=== PATIENT | female | born 1985 | race Caucasian/White ===

== ENCOUNTER 2016-11-29 14:51 | Emergency (ER) | payer OTHER, MEDICAID ==
[2016-11-29] MEDS ORDERED: Ketorolac INJ* 60 MG/2 ML VIAL IM ONE (16:55)
--- NOTE | 2016-11-29 17:00 | UC ---
Back Pain HPI - HPI Summary HPI Summary: 31 female presents to with complaints of left sided arm pain, upper back pain and pins and needles in right finger tips with intermittent swelling of fingers. Patient states these symptoms have been ongoing for the past month after an injury that occurred when she fell onto the ground. She has not yet been seen by a medical professional for this. Patient states she has been trying to get into primary care. Denies any redness, bruising or obvious deformities. Patient states the pains are sharp and aching. She can not take them anymore. Has been taking ibuprofen and aleve with relief. Last dose being around 8am. Patient denies chest pain, SOB and no PMHx. Has known arthritis in her back that she thinks is worsening up to upper back. - History of Current Complaint Chief Complaint: UCGeneralIllness Stated Complaint: BACK AND ARM PAIN Time Seen by Provider: 11/29/16 16:44 Hx Obtained From: Patient Hx Last Menstrual Period: 11/29/16 Onset/Duration: Sudden Onset, Lasting Weeks, Still Present, Worse Since Timing: Constant Severity Initially: Mild Severity Currently: Moderate Pain Intensity: 7 Pain Scale Used: 0-10 Numeric Back Pain: Is Discrete @ - left arm and upper back Character: Sharp, Aching Aggravating: Movement, Lifting Alleviating: Rest, Nothing Associated Signs And Symptoms: Positive: Swelling, Weakness, Numbness, Tingling - Allergies/Home Medications Allergies/Adverse Reactions: Allergies Allergy/AdvReac Type Severity Reaction Status Date / Time No Known Allergies Allergy Verified 11/29/16 16:10 PMH/Surg Hx/FS Hx/Imm Hx - Additional Past Medical History Additional PMH: Denies PMHx. No DM HTN or asthma - Surgical History Surgical History: Yes Surgery Procedure, Year, and Place: , 2010 - Family History Known Family History: Positive: Respiratory Disease - asthma - Social History Alcohol Use: Occasionally Substance Use Type: None Smoking Status (MU): Heavy Every Day Tobacco Smoker Type: Cigarettes Amount Used/How Often: 1 ppd Length of Time of Smoking/Using Tobacco: started age 13 Review of Systems Constitutional: Negative Respiratory: Negative Cardiovascular: Negative Motor: Weakness - left arm Musculoskeletal: Arthralgia - left arm, upper back, Myalgia Neurological: Paresthesia - left arm All Other Systems Reviewed And Are Negative: Yes Physical Exam Triage Information Reviewed: Yes Appearance: Well-Appearing, No Pain Distress, Well-Nourished Vital Signs: Initial Vital Signs Temp 98.9 F 11/29/16 16:11 Pulse 72 11/29/16 16:11 Resp 16 11/29/16 16:11 BP 116/70 11/29/16 16:11 Pulse Ox 99 11/29/16 16:11 Vital Signs Reviewed: Yes Eyes: Positive: Conjunctiva Clear ENT: Positive: Normal ENT inspection, Hearing grossly normal Neck: Positive: Supple, Nontender Respiratory: Positive: Chest non-tender, Lungs clear, Normal breath sounds, No respiratory distress, No accessory muscle use Cardiovascular: Positive: RRR, No Murmur, Pulses Normal - 2+ radial, Brisk Capillary Refill - <2 Musculoskeletal: Positive: Strength Intact - some weakness of left arm with squeezing at fist (1 month), rest of strength normal, ROM Intact - pain with flexion and abduction, No Edema Neurological: Positive: Alert, Muscle Tone Normal Skin Exam: Normal Skin: Positive: Other - normal temp UC Physical Exam Vital Signs On Initial Exam: Initial Vitals Temp Pulse Resp BP Pulse Ox 98.9 F 72 16 116/70 99 11/29/16 16:11 11/29/16 16:11 11/29/16 16:11 11/29/16 16:11 11/29/16 16:11 - Neurological Exam Neurological: Normal, Sensory/Motor Intact - some diminished sensation left hand deciphering sharp from dull, but did have feeling, Alert, Oriented to Person Place, Time, CN Intact II-III, Reflexes Intact, NV Bundle Intact Distally , Normal Gait, Facial Symmetry, Speech Normal, Other Diagnostics - Radiology cervical Xray Interpretation: No Acute Changes - Mild, nonspecific straightening of the normal cervical lordosis in this otherwise normal radiographic series of the cervical and thoracic spine. If the patient's symptoms persist, follow-up imaging is recommended. Radiology Interpretation Completed By: Radiologist thoracic Xray Interpretation: No Acute Changes - Mild, nonspecific straightening of the normal cervical lordosis in this otherwise normal radiographic series of the cervical and thoracic spine. If the patient's symptoms persist, follow-up imaging is recommended. Radiology Interpretation Completed By: Radiologist left shoulder Xray Interpretation: No Acute Changes - negative examination Radiology Interpretation Completed By: Radiologist Back Pain Course/Dx - Course Course Of Treatment: given toradol for pain and inflammation. x-rays obtained of neck, back and left shoulder due to patient preference. negative. Appears patient is suffering from a radiculopathy either from cervical, thoracic or previous injury. Recommended further follow up with ortho/neuro. Follow up appointment with PCP is on 12/22/16. Aware of worsening signs and symptoms to watch out for. No concern for CVA or cardiac in nature due to vitals, PE findings and HPI. Will given pain and inflammatory medication along with muscle relaxer. Heat/cool compresses. Refrain from strenuous use. - Differential Dx/Diagnosis Differential Diagnosis/HQI/PQRI: Arthritis, Fracture, Herniated Disc, Strain, Sprain, Other - cervical strain, nerve impingement, carpal tunnel, thoracic outlet syndrome Provider Diagnoses: left arm strain, paresthesia, chronic back pain, cervical radiculopathy Discharge - Discharge Plan Condition: Stable Disposition: HOME Prescriptions: Cyclobenzaprine TAB* [Flexeril 10 MG TAB*] 10 mg PO BEDTIME #7 tab HYDROcodone/ACETAMIN 5-325 MG* [[place] 5-325 TAB*] 1 tab PO Q8H PRN #14 tab MDD 2 PRN Reason: Pain Patient Education Materials: Cervical Radiculopathy (ED), Paresthesia (ED), Arm Pain (ED) Referrals: Non Staff,Doctor [Medical Doctor] - Jarocho Ashley MD [Medical Doctor] - Additional Instructions: Take medications as prescribed. Continue use of aleve or ibuprofen to help with inflammation and pain. take with food. Heating pads neck/back area. Cool compresses no fingers/hand. Rest and avoid strenuous physical activity until symptoms resolve. Follow up with ortho for further work up and imaging. If symptoms worsen or do not improve, new symptoms develop please seek medical attention promptly.
[2016-11-29 18:20] VITALS: BP 124/73
--- NOTE | 2016-11-29 18:21 | RAD ---
INDICATION: Left arm vein since a fall 3 weeks earlier COMPARISON: None. TECHNIQUE: 4 views of the left shoulder were obtained. FINDINGS: The adequately corticated bones are in normal alignment. Joint spaces appear maintained. No fracture, dislocation or focal bony abnormality is seen. IMPRESSION: Normal radiograph of the left shoulder. If the patient's symptoms persist, follow-up imaging is recommended.
--- NOTE | 2016-11-29 18:25 | RAD ---
INDICATION: Neck and back pain 3 weeks after a fall COMPARISON: None. TECHNIQUE: 6 views of the cervical spine and 2 views of the thoracic spine were obtained. FINDINGS: There is a mild degree of nonspecific straightening of the normal cervical lordosis. The vertebral bodies and facet joints are otherwise appropriately aligned. There is no evidence of fracture or dislocation. There is no prevertebral soft tissue swelling. The thoracic vertebral bodies are appropriately aligned. There is no evidence of fracture or spondylolisthesis. IMPRESSION: Mild, nonspecific straightening of the normal cervical lordosis in this otherwise normal radiographic series of the cervical and thoracic spine. If the patient's symptoms persist, follow-up imaging is recommended.
== END 2016-11-29 18:34 | disposition home or self-care (01) ==
LOC: UCCORT 14:51
DX: S46.912A Strain of unspecified muscle, fascia and tendon at shoulder and upper arm level, left arm, initial encounter (principal); W19.XXXA Unspecified fall, initial encounter; Y93.9 Activity, unspecified; Y92.9 Unspecified place or not applicable; R20.2 Paresthesia of skin; G89.29 Other chronic pain; M54.9 Dorsalgia, unspecified; M54.12 Radiculopathy, cervical region; Z90.49 Acquired absence of other specified parts of digestive tract; F17.210 Nicotine dependence, cigarettes, uncomplicated
CPT/HCPCS: 72050; 72070; 96372; 99212; G0463; J1885

== ENCOUNTER 2016-12-03 18:39 | Emergency (ER) | payer OTHER, MEDICAID | END 2016-12-03 19:48 | disposition left against medical advice (07) | LOC: UCCORT 18:39 | DX: Z09 Encounter for follow-up examination after completed treatment for conditions other than malignant neoplasm (principal); Z53.21 Procedure and treatment not carried out due to patient leaving prior to being seen by health care provider ==